=== PATIENT | female | born 1955 | race Caucasian/White ===

== ENCOUNTER → 2017-05-24 | Outpatient (CLI) | payer OTHER ==
--- NOTE | 2017-05-24 11:31 | BD ---
EXAMINATION TYPE: MG DEXA axial skeleton. DATE OF EXAM: 05/24/2017 COMPARISON: 2014 CLINICAL HISTORY: screening Height: 5'4 / Weight: 159 FRAX RISK QUESTIONS: Alcohol (3 or more units per day): no Family History (Parent hip fracture): no Glucocorticoids (More than 3mos): no (Ex: prednisone, prednisolone, methylprednisolone, dexamethasone, and hydrocortisone). History of Fracture in Adulthood: yes Secondary Osteoporosis: 1. Type 1 Diabetes: no 2. Hyperthyroidism: no 3. Menopause before 45: no 4. Malnutrition: no 5. Chronic liver disease: no Rheumatoid Arthritis: no Current Tobacco Use: no RISK FACTORS HISTORY OF: Family History of Osteoporosis: Postmenopausal woman: Take estrogen and/or progesterone medications: How lon MEDICATIONS: Thyroid Medications: Which medication: nature thyroid How Lon 0.802 Additional Medications: Additional History: hysterectomy 2012, early uterine ca EXAM MEASUREMENTS: Bone mineral densitometry was performed using the [employer] System. Bone mineral density as measured about the Lumbar spine is: ----- L1-L4(G/cm2): 0.802 T Score Values are as follows: ----- L2: -3.2 ----- L3: -2.6 ----- L4: -3.5 ----- L1-L4: -3.1 Bone mineral density has: Increased 2.2% since study of: 02/03/2015 Bone mineral density about the R hip (g/cm2): 0.821 Bone mineral density about the L hip (g/cm2): 0.835 T Score values are as follows: -----R Neck: -1.6 -----L Neck: -1.5 -----R Total: -1.2 -----L Total: -1.3 Bone mineral density has: Decreased -3.7% since study of: 02/03/2015 IMPRESSION: 1. Osteoporosis of the lumbar spine. 2. Osteopenia bilateral femora. NOTE: T-SCORE=SD OF THE YOUNG ADULT MEAN.
== END | disposition home or self-care (01) ==
LOC: RADBDWWP 10:41
PROVIDERS: ATTEND Specialist
DX: M85.852 Other specified disorders of bone density and structure, left thigh (principal); M85.851 Other specified disorders of bone density and structure, right thigh; M85.88 Other specified disorders of bone density and structure, other site
CPT/HCPCS: 77080

== ENCOUNTER → 2018-09-27 | Outpatient (CLI) | payer MEDICARE, OTHER ==
--- NOTE | 2018-09-27 14:25 | BD ---
EXAMINATION TYPE: Axial Bone Density DATE OF EXAM: 09/27/2018 COMPARISON: 2018 CLINICAL HISTORY: osteoporosis Height: 5'5 Weight: 161 FRAX RISK QUESTIONS: Secondary Osteoporosis: RISK FACTORS HISTORY OF: Family History of Osteoporosis: y Diet low in dairy products/other sources of calcium: y Postmenopausal woman: y Take estrogen : y How lon years MEDICATIONS: Thyroid Medications: Which medication: nature thyroid How Lon years Additional Medications: Additional History: EXAM MEASUREMENTS: Bone mineral densitometry was performed using the [employer] System. Bone mineral density as measured about the Lumbar spine is: ----- L1-L4(G/cm2): 0.785 T Score Values are as follows: ----- L2: -3.4 ----- L3: -3.1 ----- L4: -3.0 ----- L1-L4: -3.7 Bone mineral density has: Decreased -4.1% since study of: 05/24/2017 Bone mineral density about the R hip (g/cm2): 0.802 Bone mineral density about the L hip (g/cm2): 0.852 T Score values are as follows: -----R Neck: -1.7 -----L Neck: -1.3 -----R Total: -1.1 -----L Total: -0.9 Bone mineral density has: Increased 2.9% since study of: 05/24/2017 IMPRESSION: Osteoporosis (T Score less than -2.5). There is increased fracture risk and therapy is usually indicated based on age. Re-Screen 1-2 years. NOTE: T-SCORE=SD OF THE YOUNG ADULT MEAN.
== END | disposition home or self-care (01) ==
LOC: RADBDWWP 09:27
PROVIDERS: ATTEND Specialist
DX: M81.0 Age-related osteoporosis without current pathological fracture (principal)
CPT/HCPCS: 77080

== ENCOUNTER → 2022-06-04 | Outpatient (CLI) | payer MEDICARE, OTHER ==
--- NOTE | 2022-06-04 14:18 | BD ---
EXAMINATION TYPE: Axial Bone Density DATE OF EXAM: 06/04/2022 COMPARISON: 09/27/2018 CLINICAL HISTORY: 66 years year old Female. ICD-10 CODE: Z78.0 ASYMPTOMATIC MENOPAUSAL STATE Height: 63.75" Weight: 149.7 FRAX RISK QUESTIONS: Alcohol (3 or more units per day): NO Family History (Parent hip fracture): NO Glucocorticoids (More than 3mos): NO (Ex: prednisone, prednisolone, methylprednisolone, dexamethasone, and hydrocortisone). History of Fracture in Adulthood: YES, RIBS AND COLLAR BONE Secondary Osteoporosis: 1. Type 1 Diabetes: NO 2. Hyperthyroidism: NO 3. Menopause before 45: NO 4. Malnutrition: NO 5. Chronic liver disease: NO Rheumatoid Arthritis: NO Current Tobacco Use: NO RISK FACTORS HISTORY OF: Hip Fracture (Right/Left): NO Spine Fracture: NO History of Wrist Fracture: NO Surgery to Spine/Hip(right/left)/Wrist (right/left): NO Family History of Osteoporosis: YES, SISTER, POSSIBLY FATHER Active: YES Diet low in dairy products/other sources of calcium: YES Postmenopausal woman: YES Lost more than 2 inches in height since high school: NO Frequent falls: NO Poor Health: NO Hyperparathyroidism: NO Adrenal Insufficiency: NO MEDICATIONS: Prednisone or other steroids: NO Thyroid Medications: NO Osteoporosis Medications: Which medication: How Long: Additional Medications: ESTROGEN PATCH, NATURE THYROID, IODINE, SEVERAL SUPPLEMENTS Additional History: NONE EXAM MEASUREMENTS: Bone mineral densitometry was performed using the [employer] System. Bone mineral density as measured about the Lumbar spine is: ----- L1-L4(G/cm2): 0.759 T Score Values are as follows: ----- L1: -3.9 ----- L2: -3.2 ----- L3: -3.2 ----- L4: -3.7 ----- L1-L4: -3.5 Bone mineral density has: DECREASED -0.3% since study of: 09/27/2018 Bone mineral density about the R hip (g/cm2): 0.777 Bone mineral density about the L hip (g/cm2): 0.843 T Score values are as follows: -----R Neck: -1.9 -----L Neck: -1.4 -----R Total: -1.5 -----L Total: -1.4 Bone mineral density has: DECREASED -6.6% since study of: 09/27/2018 FRAX%s: The graph provided illustrates a 17.9% chance for a major osteoporotic fx and a 3.0% chance f or the hips probability for fx in 10 years time. IMPRESSION: Osteoporosis (T Score less than -2.5). There is increased fracture risk and therapy is usually indicated based on age. Re-Screen 1-2 years. NOTE: T-SCORE=SD OF THE YOUNG ADULT MEAN.
== END | disposition home or self-care (01) ==
LOC: RADBDWWP 13:16
PROVIDERS: ATTEND Family Medicine
DX: M81.0 Age-related osteoporosis without current pathological fracture (principal); Z78.0 Asymptomatic menopausal state
CPT/HCPCS: 77080

== ENCOUNTER → 2024-07-30 | Outpatient (CLI) | payer MEDICARE ==
--- NOTE | 2024-07-30 15:56 | BD ---
EXAMINATION TYPE: Axial Bone Density DATE OF EXAM: 07/30/2024 CLINICAL HISTORY: 68 years old Female. ICD-10 CODE: M81.0 AGE RELATED OSTEO , Additional History: Height: 64 in Weight: 154 lbs FRAX RISK QUESTIONS: History of Fracture in Adulthood: ribs age 53 MEDICATIONS: Thyroid Medications: yes Which medication: armor 12+ years EXAM MEASUREMENTS: Bone mineral densitometry was performed using the [employer] System. Bone mineral density as measured about the Lumbar spine is: ----- L1-L4(G/cm2): 0.795 T Score Values are as follows: ----- L1: -3.3 ----- L2: -3.5 ----- L3: -2.9 ----- L4: -3.3 ----- L1-L4: -3.2 Z Score Values are as follows: ----- L1: -1.8 ----- L2: -2.0 ----- L3: -1.4 ----- L4: -1.8 ----- L1-L4: -1.7 Bone mineral density has: Increased 4.7% since study of: 06/04/2022 Bone mineral density about the R hip (g/cm2): 0.833 Bone mineral density about the L hip (g/cm2): 0.843 T Score values are as follows: -----R Neck: -1.8 -----L Neck: -1.5 -----R Total: -1.4 -----L Total: -1.3 Z Score values are as follows: -----R Neck: -0.2 -----L Neck: 0.1 -----R Total: 0.0 -----L Total: 0.1 Bone mineral density has: Increased 1.7% since study of: 06/04/2022 FRAX%s: The graph provided illustrates a 17.5% chance for a major osteoporotic fx and a 3.1% chance f or the hips probability for fx in 10 years time. IMPRESSION: Osteopenia (T Score between -2.5 and -1). There is slightly increased risk of fracture and the patient may be considered for treatment. Re-Screen 2-5 years. NOTE: T-SCORE=SD OF THE YOUNG ADULT MEAN. [facility], , 07/30/2024 3:54 PM
== END | disposition home or self-care (01) ==
LOC: RADBDWWP 09:13
PROVIDERS: ATTEND Family Medicine
DX: M81.0 Age-related osteoporosis without current pathological fracture (principal); M85.89 Other specified disorders of bone density and structure, multiple sites
CPT/HCPCS: 77080